=== PATIENT | female | born 2000 | race Caucasian/White ===

== ENCOUNTER 2025-03-25 17:32 | Emergency (ER) | payer BC, SELFPAY ==
[2025-03-25 17:33] VITALS: BP 121/79
--- NOTE | 2025-03-25 18:14 | ED.GENMED ---
History of Present Illness
General
Chief Complaint: Abdominal Symptoms
Source: patient
Exam Limitations: none
Time Seen by Provider: 03/25/25 17:54
Nursing documentation reviewed up to this point in time: agreed with
History of Present Illness
History of Present Illness:
Patient to emergency department with complaint of severe nausea vomiting and diarrhea. Symptoms started this afternoon. She states that symptoms started after eating a salad. She reports abdominal pain. She denies any fever or chills. She
brought to the emergency department by her father for evaluation.
Past History
Past History
ED Past Medical History: Other (Spherocytosis)
Review of Systems
Review of Systems
Allergies reviewed?: Yes
All Other Systems: ROS reviewed and negative except as documented in HPI and ROS
Constitutional: Reports no symptoms
EENT: Reports no symptoms
Respiratory: Reports no symptoms
Cardiac: Reports no symptoms
ABD/GI: Reports abdominal pain (Diffuse), nausea, vomiting and diarrhea
: Reports no symptoms
Musculoskeletal: Reports no symptoms
Skin: Reports no symptoms
Neurological: Reports no symptoms
Psychiatric: Reports no symptoms
Phy Exam
General Physical Exam
General Presentation: moderate distress
General age: appears stated age
General Skin: warm and dry
General Habitus: normal
General Mental: alert
Cardiovascular Exam
Cardiovascular Exam: regular rate/rhythm and no edema
Pulmonary Exam
Pulmonary Exam: lungs clear and no respiratory distress
Gastrointestinal Exam
Gastrointestinal Exam: normal bowel sounds, soft, no organomegaly (Patient not cooperative with exam unable to adequately assess), no pulsatile mass, non distended and no cva tenderness
Palpation: generalized: Moderate tenderness (Difficult examination as patient is uncooperative continues to place her hands over her belly while provider attempts to auscultate or palpate.)
Musculoskeletal Exam
Musculoskeletal Exam: full ROM and neuro vasc intact
Skin Exam
Skin Exam: normal color, warm/dry and no rash
Psychiatric Exam
Psychiatric Exam: normal mood/affect
Course
Orders/Labs/Results
Orders:
Orders
03/25/25 18:13
Ondansetron Injectable [Zofran] 4 mg IV NOW STA
03/25/25 18:14
0.9% Sodium Chloride 1000 ml [Nss] 1,000 ml IV BOLUS
03/25/25 18:15
CT Abd/pelvis W Iv Cont Urgent
Comment:
Reason For Exam: diffuse pain, vomiting
03/25/25 19:12
Add On- LAB Urgent
Tests Added?: HCG serum qualitative
03/25/25 20:06
Complete Blood Count/With Diff Urgent
Comprehensive Metabolic Panel Urgent
HCG, Serum Qualitative Screen Urgent
Comment: ADD ON
Lipase Urgent
03/25/25 22:16
Ondansetron Injectable [Zofran] 4 mg .ROUTE .STK-MED ONE
03/25/25 22:18
Ondansetron Injectable [Zofran] 4 mg IV NOW STA
03/25/25 22:26
Ondansetron Orally Disint [Zofran Odt (Orally Disintegrating)] 4 mg .ROUTE .STK-MED ONE
03/25/25 22:27
Ondansetron Orally Disint [Zofran Odt (Orally Disintegrating)] 4 mg PO NOW STA
Abnormal Lab Results
03/25/25
20:06
WBC 23.0 H 10^3/uL
(4.8-10.8)
RBC 3.83 L 10^6/uL
(4.20-5.40)
Hct 34.1 L %
(37.0-47.0)
MCH 32.6 H pg
(27.0-31.0)
RDW 17.7 H %
(11.5-14.5)
MPV 10.5 H fL
(7.4-10.4)
Abs Immat Gran (auto) 0.1 H 10^3/uL
(0-0.05)
Absolute Neuts (auto) 21.2 H 10^3/uL
(1.4-6.5)
Absolute Lymphs (auto) 0.7 L 10^3/uL
(1.2-3.4)
Absolute Monos (auto) 0.9 H 10^3/uL
(0.1-0.6)
Immature Gran % 0.6 H %
(0-0.5)
Neutrophils % 92.2 H %
(42.2-75.2)
Lymphocytes % 3.0 L %
(20.5-51.1)
Carbon Dioxide 20 L mmol/L
(22-30)
Glucose 120 H mg/dl
(70-99)
Total Bilirubin 3.7 H mg/dl
(0.2-1.3)
Total Protein 8.5 H g/dl
(6.3-8.2)
Albumin 5.4 H g/dl
(3.5-5.0)
03/25/25 20:06
03/25/25 20:06
Vital Signs
Initial and Last Documented VS:
Initial Vital Signs
Temp Pulse Resp BP Pulse Ox
98.1 F 84 18 121/79 100
03/25/25 17:33 03/25/25 17:33 03/25/25 17:33 03/25/25 17:33 03/25/25 17:33
Last Documented Vital Signs
Temp Pulse Resp BP Pulse Ox
98.1 F 94 18 98/58 100
03/25/25 17:33 03/25/25 22:22 03/25/25 22:22 03/25/25 22:22 03/25/25 22:22
*Radiology
Radiology exam reviewed: radiology read reviewed
*Pulse Oximetry
SaO2: 100
Oxygen Mode of Delivery: Room air
Patient hypoxic: no
*Critical Care Note
Total Time (30-74mins, 75-104mins- exclusive of procedures): Not Applicable
Update Note
Update Note:
Patient to the emergency department with complaint of nausea vomiting. States she ate a salad this afternoon and approximately 2 hours later her symptoms started. She denies any fever or chills. On arrival to ED she is awake and alert. Vital
signs are stable and she remains afebrile. Labs were reviewed WBC 23.0. Discussed this finding with Dr. Márquez. Leukocytosis most likely related to multiple episodes of vomiting. T. bili of 3.7. This elevation has been noted in the past. LFTs
are normal. UA negative for UTI. She was given IV fluids and Zofran while in ED with marked improvement of her symptoms. She is now tolerating p.o. fluids without difficulty. She denies any further abdominal pain. CT of abdomen and pelvis was
completed, highly suggestive of enterocolitis. Discussed this finding with patient and her mother. Patient will continue to hydrate at home. She was given a prescription for sublingual Zofran for any further episodes of nausea. She was
instructed to follow-up closely with PCP and she will call in a.m. to schedule an appointment. She is given instructions on signs and symptoms to return to the emergency department and she is agreeable to this plan.
ED Attending Note
-
Portions of this chart may have been created with voice recognition software.� Occasional wrong word or��sound alike� substitutions may have occurred due to the inherent limitations of voice recognition software.
Discharge Plan
Departure
Patient Disposition: Home (Routine Discharge)
Date of Disposition: 03/25/25
Time of Disposition: 22:19
Patient with high blood pressure during this ER visit?: No
Condition: Good
Covid-19: Not Applicable
Discharge Problem:
Nausea & vomiting
Instructions: Clear Liquid Diet, Dehydration, Adult (DC), Nausea and Vomiting, Adult (DC)
Prescriptions:
New
ondansetron 4 mg tablet,disintegrating
4 mg PO Q8H PRN (Reason: nausea and vomiting) 4 Days Qty: 12 0RF
No Action
folic acid 1 MG tablet
1 mg PO DAILY
levothyroxine 100 mcg Tablet
100 mcg PO DAILY
cefdinir 300 mg capsule
300 mg PO BID Qty: 8 0RF
Referrals:
Basim Barnes DO [Family Provider, Family Practice] - Tomorrow
Stand Alone Forms: Return to Work
Activity Restrictions/Additional Instructions:
Return to the emergency department for any changes in/worsening of your symptoms.
Interventions
Interventions:
*Risk Screen - Suicide Last Done: 03/25/25 17:33
*General Assessment Last Done: 03/25/25 17:33
*Neglect/Abuse Screening Last Done: 03/25/25 17:33
*ED COVID-19 Vaccine History Last Done: 03/25/25 19:56
*ED Influenza Vaccine History Last Done: 03/25/25 19:56
[facility] Risk Assessment Tool Last Done: 03/25/25 20:15
*Nursing Disposition Last Done: 03/25/25 22:35
CF-Jjovzu-Gtmegwvlgk Assessment Last Done: 03/25/25 19:55
Discharge Date and Time
Discharge Date/Time: 03/25/25 22:35
Print Language: HEBREW
[2025-03-25] MEDS: ZOFRAN 4 MG IV ×2 (20:02→22:19)
[2025-03-25] MEDS: NSS 1000 IV (20:04)
[2025-03-25 20:31] LABS: HCG, Serum Qualitative Screen Negative
[2025-03-25 20:37] LABS: ALT (SGPT) 33 U/L (0-35); AST (SGOT) 33 U/L (14-36); Albumin 5.4 g/dl (3.5-5.0); Alkaline Phosphatase 57 U/L (38-126); Blood Urea Nitrogen 15 mg/dl (7-17); Calcium 9.5 mg/dl (8.4-10.2); Carbon Dioxide 20 mmol/L (22-30); Chloride 105 mmol/L (98-107); Glucose 120 mg/dl (70-99); Lipase 109 U/L (23-300); Potassium 3.8 mmol/L (3.5-5.1); Sodium 138 mmol/L (135-145); Total Protein 8.5 g/dl (6.3-8.2); eGFR > 60.00
[2025-03-25 21:06] LABS: Hematocrit 34.1 % (37.0-47.0); Hemoglobin 12.5 g/dL (12.0-16.0); Mean Corp Hgb Conc. 36.7 g/dL (33.0-37.0); Mean Corpuscular Volume 89.0 fL (81.0-99.0); Nucleated Red Blood Cells % 0 %; Platelet Count 223 10^3/uL (130-400); Red Cell Dist. Width 17.7 % (11.5-14.5)
[2025-03-25 21:15] VITALS: BP 101/63
[2025-03-25 22:00] VITALS: BP 98/58
[2025-03-25 22:22] VITALS: BP 98/58
[2025-03-25] MEDS: ZOFRAN ODT (ORALLY DISINTEGRATING) 4 MG PO (22:28)
== END 2025-03-25 22:35 | disposition home or self-care (01) ==
LOC: EMR 17:32
PROVIDERS: Nurse Practitioner; EMERGENCY PHYSICIAN Emergency Medicine; FAMILY PHYSICIAN Family Medicine
DX: R11.2 Nausea with vomiting, unspecified (principal); R19.7 Diarrhea, unspecified; Z90.49 Acquired absence of other specified parts of digestive tract
CPT/HCPCS: 99284; 96374; 96361; 96376; 74177; 80053; 83690; 84703; 85025; Q9967